=== PATIENT | female | born 1935 | race Caucasian/White ===

== ENCOUNTER 2020-05-07 02:36 | Emergency (ER) | payer MEDICARE ==
[~2020-05-07] VITALS: Ht 162.6 cm; Wt 61.0 kg
[~2020-05-07 02:36] MED LIST: NO MEDS
[2020-05-07 03:08] LABS: HEMOGLOBIN 13.7 g/dl (12.0-16.0); IMMATURE GRANULOCYTES 0.3 % (0.0-5.0); MEAN CELL VOLUME 93.2 fL CALC (80.0-100.0); MEAN CORPUSCULAR HGB CONC 31.1 g/dL CAL (32.0-36.0); NEUT# 4.43 thou/uL (2.00-7.15); RED BLOOD COUNT 4.72 mill/uL (4.20-5.60); RED CELL DISTRI WIDTH 13.5 % (11.5-15.5)
[2020-05-07 03:13] LABS: URINE BILIRUBIN - DIPSTICK NEGATIVE (NEGATIVE); URINE BLOOD DIPSTICK NEGATIVE (NEGATIVE); URINE COLOR YELLOW; URINE GLUCOSE - DIPSTICK NEGATIVE (NEGATIVE); URINE KETONE NEGATIVE (NEGATIVE); URINE LEUK ESTERASE NEGATIVE (NEGATIVE); URINE NITRITE - DIPSTICK NEGATIVE (Negative); URINE PROTEIN - DIPSTICK NEGATIVE (NEG-TRACE); URINE UROBILINOGEN - DIPSTICK 0.2 E.U./dL (0.2)
[2020-05-07 03:28] LABS: ALBUMIN 4.3 g/dL (3.2-5.0); ALKALINE PHOSPHATASE 59 u/l (38-126); ANION GAP 9 (6-22 (CALC)); BILIRUBIN, TOTAL 0.6 mg/dL (0.0-1.4); BUN 9 mg/dL (8-23); BUN/CREATININE RATIO 14 (12-20 (CALC)); CARBON DIOXIDE 32 mmol/l (22-30); CHLORIDE 102 mmol/l (95-108); CREATININE 0.6 mg/dL (0.5-1.0); GFR > 60 ML/MIN (>=60 (CALC)); GFR FOR AFR.AMER. > 60 ML/MIN (>=60 (CALC)); POTASSIUM 3.8 mmol/l (3.5-5.1); SGOT/AST 22 u/l (9-36); SODIUM 139 mmol/l (137-146); TOTAL PROTEIN 7.1 g/dL (6.3-8.2)
[2020-05-07 03:30] VITALS: BP 131/65
== END 2020-05-07 03:56 | disposition home or self-care (01) ==
LOC: ED 02:36
PROVIDERS: Family Medicine
DX: K59.00 Constipation, unspecified (principal)

== ENCOUNTER 2020-05-19 16:50 | Emergency (ER) | payer MEDICARE ==
[~2020-05-19] VITALS: Ht 162.6 cm; Wt 61.0 kg
[2020-05-19 18:27] VITALS: BP 122/66
== END 2020-05-19 18:30 | disposition home or self-care (01) ==
LOC: ED 16:50
DX: U07.1 COVID-19 (principal); R43.8 Other disturbances of smell and taste